=== PATIENT | female | born 1990 | race Caucasian/White ===

== ENCOUNTER 2022-02-25 11:46 | Outpatient (CLI) | payer OTHER, SELFPAY ==
--- NOTE | 2022-02-25 12:15 | CRLHL7_ITS ---
For Patients: As a result of the Cures Act, medical imaging exams and procedure reports are released immediately into your electronic medical record. You may view this report before your referring provider. If you have questions, please contact your health care provider. INDICATION: First trimester scan, establish dates. COMPARISON: None. TECHNIQUE: Real-time mojica-scale imaging of the pelvis was performed. FINDINGS: Sonographic imaging demonstrates a single living intrauterine gestation. The embryo demonstrates a regular cardiac rate measuring 165 beats per minute. The embryo`s crown-rump length measurement of 2.2 cm corresponds to a gestational age of 8 weeks 6 days with a sonographic due date of 10/01/2022. There is a normal-appearing yolk sac. There are no gross abnormalities noted within the embryo at this early state of development. The gestational sac has a normal appearance. There is no evidence of a perigestational hemorrhage. The amount of fluid within the sac appears appropriate for gestational age. The cervix is closed. The myometrium appears normal. The ovaries are of normal size. Corpus luteal cyst right ovary. There are no suspicious fluid collections noted in the cul-de-sac. IMPRESSION: Normal first trimester OB ultrasound exam. Gestational age calculated at 8 weeks 6 days with a sonographic due date of 10/01/2022. Dictated by James Vigil MD @ 02/25/2022 1:46:28 PM (Electronically Signed)
== END 2022-02-25 11:47 | disposition home or self-care (01) ==
PROVIDERS: Visit Provider Physician Assistant
DX: Z34.91 Encounter for supervision of normal pregnancy, unspecified, first trimester (principal); Z3A.08 8 weeks gestation of pregnancy
CPT/HCPCS: 76817; 82565; 82570; 84156; 84450; 84460; 84520; 84550; 86592; 86703; 86762; 86787; 86803; 86850; 86900; 86901; 87086; 87340; 87491; 87591

== ENCOUNTER 2022-03-20 12:31 | Outpatient (CLI) | payer OTHER, SELFPAY ==
[2022-03-20 18:07] LABS: Total Protein Urine 15 mg/dL
[2022-03-20 18:08] LABS: Creatinine Urine 53.3 mg/dL
[2022-03-20 18:16] LABS: Collection Time Urine 1900 Hours
[2022-03-20 18:17] LABS: Total Protein 24 Hour Urine 315 mg/dL; Total Volume 24 Hour Urine 2100 ml; Urine Creatinine mg/24 Hour 0 mg/Day
== END 2022-03-20 12:32 | disposition home or self-care (01) ==
PROVIDERS: Physician Assistant
DX: Z34.91 Encounter for supervision of normal pregnancy, unspecified, first trimester (principal); Z87.59 Personal history of other complications of pregnancy, childbirth and the puerperium; Z3A.12 12 weeks gestation of pregnancy
CPT/HCPCS: 82570; 84156

== ENCOUNTER 2022-03-24 09:59 | Outpatient (CLI) | payer OTHER, SELFPAY ==
[2022-03-24 14:58] LABS: Albumin* 3.4 g/dL (3.3-5.0)
[2022-03-24 15:01] LABS: Alanine Aminotransferase* 28 U/L (4-35); Alkaline Phosphatase* 57 U/L (40-150); Aspartate Amino Transferase* 36 U/L (12-35); Bilirubin Direct* 0.3 mg/dL (0.0-0.5); Bilirubin Total* 0.4 mg/dL (0.1-1.5); Total Protein* 5.7 g/dL (6.0-8.3)
== END 2022-03-24 10:00 | disposition home or self-care (01) ==
LOC: LKVREF 10:01
PROVIDERS: Visit Provider Physician Assistant
DX: Z34.90 Encounter for supervision of normal pregnancy, unspecified, unspecified trimester (principal)
CPT/HCPCS: 80076

== ENCOUNTER 2022-05-19 09:40 | Outpatient (CLI) | payer OTHER, SELFPAY ==
--- NOTE | 2022-05-19 09:45 | CRLHL7_ITS ---
For Patients: As a result of the Century Cures Act, medical imaging exams and procedure reports are released immediately into your electronic medical record. You may view this report before your referring provider. If you have questions, please contact your health care provider. INDICATION: Evaluate anatomy. COMPARISON: 02/25/22 TECHNIQUE: Real time mojica scale imaging of the fetus was performed as well as color Doppler analysis of the umbilical vessels. FINDINGS: Sonographic imaging demonstrates a single living intrauterine gestation. Fetus demonstrates a regular cardiac rate of 136 beats per minute. Fetus has a vertex position. The placenta lies posteriorly without evidence of placenta previa. The edge of the placenta is located 4.3 cm from the internal cervical os. Amniotic fluid volume appears normal. Single deepest vertical pocket: 2.9 cm. The cervix is closed and measures 3.5 cm in length. The composite ultrasound gestational age is calculated at 20 weeks 4 days with an estimated sonographic due date of 10/02/2022. The estimated weight is 370 grams which lies at the 43rd %. The following biometric measurements were obtained: Biparietal diameter: 4.8 cm/20 weeks 3 days 37th% Head circumference: 17.8 cm/20 weeks 2 days 21st% Abdominal circumference: 15.6 cm/20 weeks 6 days 46th% Femur length: 3.4 cm/20 weeks 5 days 40th% The HC/AC ratio measures: 1.14 range (1.07-1.25) On anatomic survey, there is a normal appearance of the cerebral ventricles, cavum septi pellucidi, cisterna magna and cerebellum. The nose, lips, and facial profile appear normal. The cervical, thoracic and lumbar spine are well visualized and appear normal. There is a normal four-chamber heart view and the left and right ventricular outflow tracts appear normal. The diaphragm and stomach appear normal. The kidneys and bladder also appear normal. There is a normal three-vessel cord and there is an eccentric cord insertion site. The four extremities appear normal. IMPRESSION: Normal OB ultrasound exam with concordance of clinical and sonographic dating. No intrinsic abnormalities noted on anatomic survey. Dictated by James Vigil MD @ 05/19/2022 11:40:40 AM (Electronically Signed)
== END 2022-05-19 09:41 | disposition home or self-care (01) ==
LOC: US 09:40
PROVIDERS: Visit Provider Physician Assistant
DX: Z34.92 Encounter for supervision of normal pregnancy, unspecified, second trimester (principal); Z3A.20 20 weeks gestation of pregnancy
CPT/HCPCS: 76805

== ENCOUNTER 2022-09-05 15:26 | Outpatient (CLI) | payer OTHER, SELFPAY ==
[2022-09-06 17:15] LABS: Strep B DNA Probe NEGATIVE (Negative)
[2022-09-06 18:06] LABS: Strep B Pen/Amox Allergy No
== END 2022-09-05 15:27 | disposition home or self-care (01) ==
LOC: NFLDREF 15:26
PROVIDERS: Visit Provider Obstetrics & Gynecology
DX: Z34.93 Encounter for supervision of normal pregnancy, unspecified, third trimester (principal); Z3A.36 36 weeks gestation of pregnancy
CPT/HCPCS: 87081; 87653

== ENCOUNTER 2022-09-30 15:09 | Inpatient (IN) | payer OTHER, SELFPAY ==
[2022-09-30] VITALS (31 sets, daily range): BP systolic 101–149; BP diastolic 63–87; PULSE 71–118; RESP 18; TEMP 36.6–36.8; O2SAT 93–100; BMI 25.2
[2022-09-30] MEDS: LACTATED RINGERS 1000 ML 1,000 ML 1200 ML IV (15:33)
[2022-09-30] MEDS: PHENYLEPHRINE 100 MCG/ML SYRINGE IVP (15:50)
[2022-09-30] MEDS: ROPIVACAINE 0.2% 100 ml 100 ML 12 MG EPIDURAL (15:59)
[2022-09-30 16:10] LABS: Amnisure Rom* Negative
--- NOTE | 2022-09-30 16:10 | P.ANBPRC_ITS ---
[facility] Medical History (Updated 09/29/22 @ 12:26 by Sarahy Mondragon MD) care ?Z34.90 - Encounter for supervision of normal , unspecified, unspecified trimester (ICD-10) History of pre-eclampsia ?Z87.59 - Personal history of other complications of , childbirth and the puerperium (ICD-10) Surgical History (Updated 02/25/22 @ 11:30 by Joana Benitez PA-C) History of laparoscopy ?Z98.890 - Other specified postprocedural states (ICD-10) History of hysteroscopy ?Z98.890 - Other specified postprocedural states (ICD-10) History of appendectomy ?Z90.49 - Acquired absence of other specified parts of digestive tract (ICD- 10) History of vacuum extraction assisted delivery ?Z87.59 - Personal history of other complications of , childbirth and the puerperium (ICD-10) Social History (Updated 02/25/22 @ 13:23 by Joana Benitez PA-C) Narrative: funeral service manager. . Nonsmoker. Smoking Status: Never smoker Little interest or pleasure in doing things: not at all Feeling down, depressed, or hopeless: not at all Meds Home Medications and Allergies Home Medications Medication Instructions Recorded Confirmed Type docosahexaenoic acid 200 mg mg PO 09/22/22 09/29/22 History capsule ( DHA) Allergies Allergy/AdvReac Type Severity Reaction Status Date / Time No Known Drug Allergies Allergy Verified 09/29/22 12:26 Results Vital Signs Vital Signs: Last Vital Signs Temp 97.9 F 09/30/22 16:04 Pulse 91 09/30/22 16:06 Resp 18 09/30/22 16:04 BP 130/76 09/30/22 16:06 Pulse Ox 98 09/30/22 15:52 Weight: 62.709 kg Height: 157.48 cm Anesthesia Procedures Epidural Insertion Patient Location: OB Start Time: 15:25 Stop Time: 14:15 Start Date: 09/30/22 Stop Date: 09/30/22 Reason for Block: procedure for pain Patient Position: sitting Performed By: Maggie Khan Preanesthetic Checklist: IV checked, risks and benefits discussed, monitors and equipment checked, timeout performed and anesthesia consent Prep: chlorhexidine gluconate Monitoring: blood pressure monitoring, continuous pulse oximetry and heart rate Approach: midline Vertebral Space: lumbar (1-5) Epidural Technique: SWETHA saline Needle Type: Tuohy needle Injection Technique: continuous catheter Needle gauge: 17 Needle Length (cm): 10 cm Needle Insertion Depth (cm): 6 Catheter Gauge: 19 Catheter Type: multi-orifice Catheter at skin depth (cm): 12 Test Dose Result: negative and lidocaine 1.5% with epinephrine 1 to 200,000
[2022-09-30] MEDS: OXYTOCIN 30 unit/500 ML in NS 30 UNIT/500 ML BAG 300 UNIT IVPB (17:23)
--- NOTE | 2022-09-30 17:49 | W.PM.LDBA ---
Subjective History of Present Illness Time Seen by Provider: 16:00 Date Seen: 09/30/22 Narrative: Patient is being admitted to Labor and Delivery for active labor. Frank every 3-5 minutes. She is a 31 year old at 39.6 weeks gestation. Her full history and physical was dictated by Dr. Mondragon on 09/12/2022. Please see this for details. Patient denies vaginal bleeding or leakage of fluid. She also denies MERCER, n/v, RUQ pain, or visual abnormalities Endorses normal movement. OB - Problem Based A/P Additional Plan (1) Spontaneous onset of labor: Status: Acute Plan - Admitted for spontaneous labor - Pain management plan: epidural Delivery/Labor/Induction Plan Plan: expectant management OB Exam Physical Exam Vital signs: Temp Pulse Resp BP Pulse Ox 97.9 F 110 H 18 111/71 99 09/30/22 17:37 09/30/22 17:37 09/30/22 17:37 09/30/22 17:37 09/30/22 17:01 Narrative: Physical exam: General: In labor pain requesting epidural Psych: Alert and oriented x3, full affect HEENT: Normocephalic, atraumatic Lungs: Labored breathing through contractions Neuro: No focal deficit. Mentating appropriately Pelvic exam: 5/90/0 with bulging bag per RN
--- NOTE | 2022-09-30 18:01 | W.PM.VAGDEL1 ---
Procedure Delivery date: 09/30/22 Procedure Done: Global Procedure Details: Latisha is a 31 year-old admitted on 09/30/2022 at 39 and 6/7 weeks gestation for spontaneous onset of labor. Cervical exam on admission was 6 cm/90 % effaced/0 station with membranes intact in vertex presentation. Contractions were every 2-3 minutes. heart rate demonstrated baseline 110 bpm with moderate variability, + accelerations, negative decelerations; a category I tracing. GBS negative. SROM occurred at 1725 on 09/30/2022 with clear fluid. Labor Analgesia: Epidural Pitocin: No Labor onset: 09/30/22 at 1523 Complete: 09/30/22 at 1627 Pushin09/30/22 at 1627 heart tones during second stage were Cat I for the majority of the second stage with a couple of variable decelerations during . At 1723 a viable female infant (Megha) delivered in vertex away presentation over intact perineum via spontaneous vaginal delivery. Infant was placed on maternal abdomen. Cord was clamped and cut after a 30-60 second delay. Nose and mouth were bulb suctioned. weight: Pending. 8 at 1 minute and 9 at 5 minutes. Shoulder dystocia: No. Nuchal cord: No. Placenta delivered spontaneously and complete at 1725 with a 3 vessel cord. Complications: None. Mother and were stable after delivery. Laceration(s): None Estimated blood loss: 50 mL. Sponge and needles counts are correct. Mother and were stable at the time of this note. Latisha is planning on .
[2022-09-30] MEDS: ACETAMINOPHEN 500 MG TABLET 1000 MG PO (18:20)
[2022-09-30] MEDS: IBUPROFEN 600 MG TABLET PO (20:34)
[2022-09-30] MEDS: diphenhydrAMINE 25 MG CAPSULE PO (21:30)
[2022-10-01] MEDS: ACETAMINOPHEN 500 MG TABLET 1000 MG PO ×3 (00:14→19:25)
[2022-10-01 00:17] VITALS: BP 135/87; PULSE 67; RESP 16; TEMP 36.7; O2SAT 98
[2022-10-01] MEDS: IBUPROFEN 600 MG TABLET PO ×2 (04:46→11:34)
[2022-10-01 04:47] VITALS: BP 124/71; PULSE 71; RESP 16; TEMP 36.6
[2022-10-01] MEDS: diphenhydrAMINE 25 MG CAPSULE PO ×2 (04:58→18:14)
[2022-10-01 06:32] LABS: Hemoglobin* 10.8 gm/dL (12.0-16.0)
[2022-10-01 07:56] VITALS: BP 117/77; PULSE 73; RESP 16; TEMP 36.6
[2022-10-01] MEDS: DOCUSATE SODIUM 100 MG CAPSULE PO (07:57)
[2022-10-01] MEDS: HYDROCORTISONE 1 % CREAM 1 APPLIC TOPICAL ×3 (08:06→21:22)
--- NOTE | 2022-10-01 08:39 | PM.OBPNVD1 ---
OB - PN:Subj Subjective Time Seen by Provider: 08:39 Date Seen: 10/01/22 Patient comments OB post-: other (Complains of extremely itchy full body rash. Has been taking amoxicillin for sinus infection for 5 days. Had a previous rash from amoxicillin when she was in high school, but has used it since without problems. Denies shortness of breath, facial or tongue swelling.) infant status: Narrative: Reports normal lochia, passed a couple small clots. OB - PN: Obj Exam Physical Exam: Vital signs: Temp Pulse Resp BP Pulse Ox O2 Del Method 97.9 F 73 16 117/77 98 Room Air 10/01/22 07:56 10/01/22 07:56 10/01/22 07:56 10/01/22 07:56 10/01/22 00:17 10/01/22 07:56 Constitutional: Constitutional: no acute distress Routine Abdominal Exam: Abdominal: Present soft; Absent tenderness Fundus: Present firm Routine Extremities Exam: Extremities: Present normal inspection and pedal edema; Absent calf tenderness Routine Skin Exam: Skin: Present rash (maculopapular erythematous pruritic rash on trunk and extremities and neck) Routine Neurological Exam: Neurological: Present alert and oriented X3 Routine Psychiatric Exam: Psychiatric: Present normal affect OB - PN: Obj Data Labs Labs: Laboratory Results - last 24 hr 09/30/22 10/01/22 15:49 06:05 Hgb 10.8 L Membrane Rupture Negative OB - PN: A/P Delivery Assessment and Plan (1) Status post normal vaginal delivery: Status: Acute (2) Anemia due to blood loss, acute: Status: Acute Assessment and Plan: asymptomatic (3) Amoxicillin-induced allergic rash: Status: Acute Plan Famotidine and oral steroid taper will be ordered for rash, as she has not had great response to antihistamine and topical hydrocortisone. Relative safety of medications during reviewed. Plan day: 1 Plan: routine care
[2022-10-01] MEDS: predniSONE 20 MG TABLET 30 MG PO (09:50)
[2022-10-01] MEDS: FAMOTIDINE 20 MG TABLET PO ×2 (09:50→21:22)
[2022-10-01 11:08] VITALS: BP 121/80; PULSE 73; RESP 16; TEMP 36.4
[2022-10-01 15:03] VITALS: BP 127/76; PULSE 60; RESP 16; TEMP 36.8
[2022-10-02] MEDS: IBUPROFEN 600 MG TABLET PO ×2 (00:04→06:52)
[2022-10-02] MEDS: diphenhydrAMINE 25 MG CAPSULE PO (00:04)
[2022-10-02 00:46] VITALS: BP 117/77; PULSE 55; RESP 16; TEMP 36.7; O2SAT 96
[2022-10-02] MEDS: ACETAMINOPHEN 500 MG TABLET 1000 MG PO ×2 (02:42→08:42)
--- NOTE | 2022-10-02 07:42 | PM.OBDSVD1 ---
DS: Providers Provider Date Seen: 10/02/22 Date of admission: 09/30/22 15:09 Primary care physician: Not a Local Provider Admitting Clinician: Patricia Anderson MD Attending Physician on discharge: Cesilia De Jesus CNM DS: Diagnosis Discharge Diagnosis (1) Amoxicillin-induced allergic rash: Status: Acute (2) Lactating mother: Status: Acute (3) care and examination immediately after delivery: Status: Acute Exam Narrative: Exam Narrative: GENERAL APPEARANCE:? normal affect, alert, no distress MOOD:? appropriate CHEST:? clear to auscultation HEART:? regular rate and rhythm ABDOMEN:? soft, non-tender the uterine fundus is at Umbilicus, Midline and is appropriate for the stage of recovery. PERINEUM:? mild edema of the perineum, intact perineum. EXTREMITIES:? normal and no edema Const: Vital Signs, click to edit/add: Vital Signs - 24 hr 10/01/22 07:56 10/01/22 11:08 10/01/22 15:03 Temperature 97.9 F 97.6 F 98.2 F Pulse Rate [Pulse Oximeter] 73 73 60 Respiratory Rate 16 16 16 Blood Pressure [Ri ght Arm] 117/77 121/80 127/76 Pulse Oximetry Oxygen Delivery Me thod Room Air Room Air Room Air 10/02/22 00:46 Temperature 98.0 F Pulse Rate [Pulse Oximeter] 55 L Respiratory Rate 16 Blood Pressure [Ri ght Arm] 117/77 Pulse Oximetry 96 Oxygen Delivery Me thod Documenting provider has reviewed patient's vital signs: yes OB - DS: Summary Hospital Course Hospital Course: Laurel Good is a 31 y.o. who was admitted to L & D for spontaneous onset of labor. ?She had an NVD, it was uncomplicated. Her was complicated by an amoxicillin reaction. The patient feels well. ?The pain is well controlled with current medications. ?She has no new complaints. ?She is breast feeding and reports things are a little difficult, having some latching issues. The nurses have been helping, there is no this week. She will plan to schedule one next week. the patient has done well.? Vitals have been stable.? She has remained afebrile.? Has a good appetite, is tolerating a general diet. ?She is voiding without difficulty.? She is passing gas and has not had a bowel movement.? She is ambulating and denies any dizziness.? Has Small amount of rubra lochia. Problems: none plan: Discharge home with baby. Follow up in 2 weeks and 6 weeks. , may see if needed Hgb 10.8. Will continue iron supplement at home. Peripartum Data Infant delivery method: Vaginal Laceration description: None complications: other (amoxicillin reaction) [place] Gender: Female Discharge Plan: Home Status at Discharge Functional status at discharge: independent ambulation Overall status at discharge: patient is progressing back to baseline Time Spent with Patient Time attestation: Total time spent providing and/or coordinating discharge services: Discharge Plan Discharge Disposition: Home, Self-Care Date of Admission: 09/30/22 15:09 Attending Provider on Discharge: Cesilia De Jesus Primary Care Provider: Provider,Not a Local Condition: Stable Anticipated Discharge Date/Time: 10/02/22 12:00 Discharge Medications: New docusate sodium 100 mg Capsule 100 mg PO DAILY Qty: 90 0RF ibuprofen 600 mg Tablet 600 mg PO Q6H PRNQty: 60 0RF prednisone 10 mg tablet See Rx Instructions .ROUTE .COMPLEX Qty: 9 0RF Rx Instructions: For days 1-3, take 20 mg (2 tabs) once daily by mouth (3 days). On days 4-6, take 10 mg (1 tab) once daily by mouth (3 days). acetaminophen 500 mg Tablet 1,000 mg PO Q6H PRNQty: 0 0RF Continued DHA 200 mg capsule 200 mg PO DAILY ferrous sulfate 325 mg (65 mg iron) tablet 325 mg PO Q OTHER DAY Qty: 90 2RF Discharge Orders: Discharge Order (Routine); Ordered 10/02/22 Ordered By: Cesilia De Jesus Patient Education: OB Over the Counter Medication Information, OB Vaginal/Breast Feeding Additional Instructions: Discharge instructions were reviewed with the patient including signs and symptoms of infection and home going medications Nothing vaginally for 6 weeks: no tampons or intercourse Off Work or School for 6 weeks 2-week visit: discuss infant feeding concerns, review control options and screen for anxiety/depression. 6-week visit for an annual exam. consultation services are available to all mothers and babies for the first year after delivery.? To make an appointment, please call [phone]. Activity Level: Activity as Tolerated Discharge Diet: Regular Follow Up Appointments: [facility] [Provider Group] Forms: [employer] Info Instructions
[2022-10-02] MEDS: DOCUSATE SODIUM 100 MG CAPSULE PO (08:42)
[2022-10-02] MEDS: predniSONE 10 MG TABLET 25 MG PO (08:43)
[2022-10-02 08:59] VITALS: BP 125/78; PULSE 81; RESP 16; TEMP 36.8; O2SAT 98
== END 2022-10-02 10:45 | disposition home or self-care (01) | DRG 807 ==
LOC: OB 15:12
PROVIDERS: Admitting Provider Obstetrics & Gynecology; Visit Provider Obstetrics & Gynecology
DX: O99.02 Anemia complicating childbirth (principal); Z37.0 Single live birth; D64.9 Anemia, unspecified; O9A.23 Injury, poisoning and certain other consequences of external causes complicating the puerperium; L27.0 Generalized skin eruption due to drugs and medicaments taken internally; T36.0X5A Adverse effect of penicillins, initial encounter; Y92.230 Patient room in hospital as the place of occurrence of the external cause; Z3A.39 39 weeks gestation of pregnancy
CPT/HCPCS: 01967; 36415; 84112; 85018; 85025; 86850; 86900; 86901; A9270; J2371; J2795; J7120; J7512; S0020

== ENCOUNTER 2023-07-09 12:15 | Outpatient (CLI) | payer OTHER, SELFPAY ==
--- NOTE | 2023-07-09 12:30 | US_ITS ---
Patient: GAVIN BAKER Facility:?[facility] Patient ID:?[id number] Site Patient ID:?[id number]. Site :?1990 Study:?US-OB Pelvis dating-07/09/2023 1:03:37 PM Ordering Physician:Mani June Final Report: INDICATION: First trimester scan, establish dates. TECHNIQUE: Real-time mojica-scale imaging of the pelvis was performed. FINDINGS: Sonographic imaging demonstrates a single living intrauterine gestation. The embryo demonstrates a regular cardiac rate measuring 119 beats per minute. The embryo`s crown-rump length measurement of 0.7 cm corresponds to a gestational age of 6 weeks 4 days with a sonographic due date of 02/28/2024 . There is a normal-appearing yolk sac. Small to moderate subchorionic hemorrhage measuring 3.6 x 1.2 x 0.7 centimeters. IMPRESSION: Early intrauterine gestation at 6 weeks 4 days with KAYLEE of 02/28/2024. Small to moderate subchorionic hemorrhage measuring 3.6 x 1.2 x 0.7 centimeters. Dictated by Kaya Henry MD @ 07/10/2023 9:49:37 AM Signed by:?Kaya Henry MD @07/10/2023 9:49:37 AM (Electronic Signature)
== END 2023-07-09 12:16 | disposition home or self-care (01) ==
LOC: US 12:16
PROVIDERS: Visit Provider Physician Assistant
DX: Z34.91 Encounter for supervision of normal pregnancy, unspecified, first trimester (principal); O20.9 Hemorrhage in early pregnancy, unspecified; Z3A.01 Less than 8 weeks gestation of pregnancy
CPT/HCPCS: 76817

== ENCOUNTER 2023-07-21 13:49 | Outpatient (CLI) | payer OTHER, SELFPAY ==
--- NOTE | 2023-07-21 14:00 | US_ITS ---
Patient: GAVIN BAKER Facility:?[facility] Patient ID:?[id number] Site Patient ID:?[id number]. Site :?1990 Study:?US-OB Pelvis viability-07/21/2023 2:36:09 PM Ordering Physician:Marilu Miles Final Report: INDICATION: Abnormal vaginal bleeding in early . TECHNIQUE: Transabdominal and transvaginal limited obstetric ultrasound examination of the pelvis was performed. Grayscale and color Doppler images were obtained. COMPARISON: Pelvic ultrasound 07/09/2023. FINDINGS: Uterus: Normal in echotexture. No suspicious masses. Endometrium: No significant endometrial free fluid. Intrauterine gestation: Yes. Mean sac diameter of 1.1 cm. cardiac activity: heart tones are no longer observed. [place]-rump length: 1.5 cm. Estimated gestational age of 7 weeks and 6 days. Yolk sac: Normal. Perigestational hemorrhage: No. Right Ovary: Not visualized. Left ovary: Measures 4.7 x 2.5 x 2.9 cm. Corpus luteal cyst. Normal arterial and venous flow on color Doppler imaging. Cul-de-sac: No free fluid. IMPRESSION: Cessation of previously documented embryonic cardiac activity is diagnostic of failure. Dictated by Jhona Anderson MD @ 07/21/2023 3:08:22 PM Signed by:?Jhoan Anderson MD @07/21/2023 3:08:22 PM (Electronic Signature)
== END 2023-07-21 13:50 | disposition home or self-care (01) ==
LOC: US 13:50
PROVIDERS: Visit Provider Advanced Practice Midwife
DX: O20.9 Hemorrhage in early pregnancy, unspecified (principal); O36.8310 Maternal care for abnormalities of the fetal heart rate or rhythm, first trimester, not applicable or unspecified; Z3A.01 Less than 8 weeks gestation of pregnancy
CPT/HCPCS: 76817

== ENCOUNTER 2024-01-05 07:06 | Outpatient (CLI) | payer OTHER, SELFPAY ==
--- NOTE | 2024-01-05 07:15 | CRLHL7_ITS ---
For Patients: As a result of the Cures Act, medical imaging exams and procedure reports are released immediately into your electronic medical record. You may view this report before your referring provider. If you have questions, please contact your health care provider. INDICATION: First trimester scan, establish dates. COMPARISON: None. TECHNIQUE: Real-time mojica-scale imaging of the pelvis was performed. FINDINGS: Sonographic imaging demonstrates a single living intrauterine gestation. The embryo demonstrates a regular cardiac rate measuring 169 beats per minute. The embryo`s crown-rump length measurement of 2.6 cm corresponds to a gestational age of 9 weeks 2 days with a sonographic due date of 08/07/2024. There is a normal-appearing yolk sac. There are no gross abnormalities noted within the embryo at this early state of development. The gestational sac has a normal appearance. There is a 2.3 x 0.7 x 0.9 cm perigestational hemorrhage. The amount of fluid within the sac appears appropriate for gestational age. The cervix is closed. The myometrium appears normal. Normal right ovary. Left ovary not visualized. There are no suspicious fluid collections noted in the cul-de-sac. IMPRESSION: Single living intrauterine measuring 9 weeks 2 days with sonographic due date of 08/07/2024. Subchorionic hemorrhage measures 2.3 x 0.7 x 0.9 cm. Dictated by James Vigil MD @ 01/05/2024 10:27:09 AM (Electronically Signed)
== END 2024-01-05 07:07 | disposition home or self-care (01) ==
PROVIDERS: Visit Provider Physician Assistant
DX: Z34.91 Encounter for supervision of normal pregnancy, unspecified, first trimester (principal); O20.9 Hemorrhage in early pregnancy, unspecified; Z3A.09 9 weeks gestation of pregnancy
CPT/HCPCS: 76817

== ENCOUNTER 2024-01-05 08:03 | Outpatient (CLI) | payer OTHER, SELFPAY | END 2024-01-05 08:04 | disposition home or self-care (01) | PROVIDERS: Visit Provider Physician Assistant | DX: Z34.91 Encounter for supervision of normal pregnancy, unspecified, first trimester (principal); Z3A.09 9 weeks gestation of pregnancy | CPT/HCPCS: 82565; 82570; 84156; 84450; 84460; 84520; 86592; 86703; 86704; 86706; 86762; 86787; 86803; 86850; 86900; 86901; 87086; 87340 ==

== ENCOUNTER 2024-03-10 10:07 | Outpatient (CLI) | payer OTHER, SELFPAY ==
--- NOTE | 2024-03-10 10:15 | CRLHL7_ITS ---
For Patients: As a result of the Century Cures Act, medical imaging exams and procedure reports are released immediately into your electronic medical record. You may view this report before your referring provider. If you have questions, please contact your health care provider. INDICATION: Evaluate anatomy. COMPARISON: 01/05/2024 TECHNIQUE: Real time mojica scale imaging of the fetus was performed as well as color Doppler analysis of the umbilical vessels. FINDINGS: Sonographic imaging demonstrates a single living intrauterine gestation. Fetus demonstrates a regular cardiac rate of 135 beats per minute. Fetus has a vertex position. The placenta lies anteriorly without evidence of placenta previa. Placental edge 5.2 cm from the internal cervical os. Amniotic fluid volume appears normal. Single deepest vertical pocket: 4.8 cm. The cervix is closed and measures 3.5 cm in length. The composite ultrasound gestational age is calculated at 19 weeks 2 days with an estimated sonographic due date of 08/02/2024. The estimated weight is 285 grams which lies at the 86th %. The following biometric measurements were obtained: Biparietal diameter: 4.3 cm/19 weeks 1 day 74th% Head circumference: 16.0 cm/18 weeks 6 days 56th% Abdominal circumference: 14.6 cm/19 weeks 6 days 86th% Femur length: 2.8 cm/18 weeks 5 days 49th% The HC/AC ratio measures: 1.09 range (1.09-1.26) On anatomic survey, there is a normal appearance of the cerebral ventricles, cavum septi pellucidi, cisterna magna and cerebellum. Nose and lips are incompletely cleared. Normal profile the cervical, thoracic and lumbar spine are well visualized and appear normal. There is a normal four-chamber heart view and the left and right ventricular outflow tracts appear normal. The diaphragm and stomach appear normal. The kidneys and bladder also appear normal. There is a normal three-vessel cord and cord insertion site. The four extremities appear normal. IMPRESSION: Concordance of clinical and sonographic dating. Cannot clear the nose and lips due to position. Short-term follow-up recommended. Remainder of the anatomic survey is normal. Dictated by James Vigil MD @ 03/10/2024 11:57:42 AM (Electronically Signed)
== END 2024-03-10 10:08 | disposition home or self-care (01) ==
PROVIDERS: Visit Provider Advanced Practice Midwife
DX: Z34.92 Encounter for supervision of normal pregnancy, unspecified, second trimester (principal); O35.AXX0 Maternal care for other (suspected) fetal abnormality and damage, fetal facial anomalies, not applicable or unspecified; Z3A.19 19 weeks gestation of pregnancy
CPT/HCPCS: 76805

== ENCOUNTER 2024-06-15 10:23 | Outpatient (CLI) | payer OTHER, SELFPAY | END 2024-06-15 10:24 | disposition home or self-care (01) | LOC: NFLDREF 06-20 03:55 | PROVIDERS: Visit Provider Midwife | DX: Z34.93 Encounter for supervision of normal pregnancy, unspecified, third trimester (principal); Z3A.32 32 weeks gestation of pregnancy | CPT/HCPCS: 86592 ==

== ENCOUNTER 2024-07-20 13:09 | Outpatient (CLI) | payer OTHER, SELFPAY | END 2024-07-20 13:10 | disposition home or self-care (01) | LOC: NFLDREF 07-27 02:36 | PROVIDERS: Visit Provider Midwife | DX: Z34.83 Encounter for supervision of other normal pregnancy, third trimester (principal) | CPT/HCPCS: 87081; 87653 ==

== ENCOUNTER 2024-08-12 07:24 | Inpatient (IN) | payer OTHER, SELFPAY ==
[2024-08-12] VITALS (24 sets, daily range): BP systolic 117–151; BP diastolic 65–88; PULSE 67–88; RESP 14–18; TEMP 36.6–37; O2SAT 96–98; BMI 24.8
--- NOTE | 2024-08-12 07:20 | W.PM.LDBA ---
Subjective History of Present Illness Date Seen: 08/12/24 Narrative: Patient is being admitted to Labor and Delivery for active labor. She is a 33 year old at 40 5/7 weeks gestation. Her full history and physical was dictated by me on 07/20/2024. Please see this for details. She is planning to naturally and Bharat is here supporting her. No LOF or vaginal bleeding. She reports good movement. Contractions began at 0430 and have increased since pumping at 0630. She is feeling them mostly in her back. Specific Issues/Plans Partner: Bharat HPI completed 07/20/2024 by Lidia SAN Traveling out of state March - May 41 week IOL scheduled for 08/14 at 730 am # history of pre E with 1st Aspirin 81 mg starting at 12 weeks Baseline pre E labs: pr/cr ratio: 0.53, o/w normal # history of IVF with 1st only # history of vacuum assisted vaginal delivery with 1st , pushed for 4 hours #varicella non-immune Vaccinate #Inadequate view of nose and lip Follow-up US when patient returns from travels US f/u: declined by patient 07/20/24 #Anemia Hgb at 32 weeks:10.2mg/dL Start oral iron supplements recommended 06/15/24 Vaccinations: COVID: declines Flu: declines Tdap: 06/15/2024 RSV: N/A 32 week mental health: 06/15/24 Last pap: 2020, declined Pap until Consider pelvic floor PT for PP Comments: ? OB - Problem Based A/P Additional Plan (1) Pain during labor: Status: Acute (2) Supervision of other normal : Status: Acute Plan ASSESSMENT:?? 33 yo at 40w5d gestation?? complicated by:??anemia, inadequate view of nose and lip with follow up declined by patient. Labor type:Spontaneous, Active labor?? Category 1 FHR pattern.??? Labor complicated by: none?? GBS negative? ?? PLAN:?? 1. Routine intrapartum cares as ordered. Continue with expectant management. Enc inversion and side-lying releases and to consider ROM if augmentation is needed? 2. Monitoring per policy, intermittent?? 3. Planning unmedicated . Candidate for analgesia of choice.?She does not want to be offered any pain meds, but is aware of options available. 4. Patient encouraged to reposition and ambulate to promote physiologic labor and .?? 5. Anticipate OB Exam Physical Exam Vital signs: Temp Pulse Resp BP Pulse Ox 98.5 F 78 16 117/71 98 08/12/24 05:00 08/12/24 05:00 08/12/24 05:00 08/12/24 05:00 08/12/24 02:28 Narrative: Vitals Reviewed Constitutional:? Alert and oriented x3 HEENT:? Normocephalic, atraumatic Neck:? Supple Lungs:? Clear to auscultation bilaterally Heart:? Regular rate and rhythm, no murmur, rub or gallop Abdomen:? Soft, nontender, and gravid. Vertex by Jaden's, confirmed with cervical exam. Extremities:? No edema or erythema Cervix: 5 cm/80%/-2 station/vertex per nursing assessment NST: 120 bpm/moderate variability/accelerations present/decelerations absent, though cannot be completely ruled out due to broken tracing and suspected maternal coincidence/contractions every 3-5min--feels ROP
[2024-08-12] MEDS: OXYTOCIN 10 UNIT/ML INJ IM (10:36)
[2024-08-12] MEDS: METHYLERGONOVINE MALEATE 0.2 MG/ML INJ IM (10:50)
[2024-08-12] MEDS: OXYTOCIN 30 unit/500 ML in NS 30 UNIT/500 ML BAG 300 UNIT IVPB (10:53)
[2024-08-12] MEDS: ACETAMINOPHEN 500 MG TABLET 1000 MG PO (10:58)
--- NOTE | 2024-08-12 11:00 | W.PM.OBVAGDE ---
OB Procedure Vag Delivery Mother Details Mother Details: The patient is a 33 year-old, 5, now Para 3023, admitted on 08/12/24 at 40 5/7 weeks gestation. Admission Date: 08/12/24 Additional Details Amniotic Membrane Status: SROM Amniotic Membrane Rupture Date: 08/12/24 Amniotic Membrane Rupture Time: 10:15 Amniotic Membrane Fluid Description: Clear Analgesia/Anesthesia Type: None Waterbirth: No Pitcoin: Yes Intrapartal Events: None Labor Onset: 06:30 Complete: 10:02 Pushin:00 (consistent, stronger pushing) Heart: heart tones during second stage were checked intermittently and category I. Delivery Details Delivery Date: 08/12/24 Delivery Time: 10:31 Route of delivery: Gender: Male Infant Viability: Alive; Heart Rate Present Delivery Details: Patient was admitted for active labor and progressed normally. She wanted to naturally and was able to do so very well. SROM noted at 1015 with clear fluid. She was intermittently spontaneously doing small pushes to cope when she was about 9 cm. Patient was complete at 1002 and pushing at 1000 with stronger, longer pushing efforts. of a viable male at 1031 in semifowlers. Vertex delivered OA. One tight nuchal cord that was carefully reduced without complication. No shoulder dystocia. Body delivered easily and without incident. Infant passed to mothers abdomen with excellent tone and cried on arrival to her abdomen. Cord was clamped and cut when placenta showed signs of separation.. APGARS were 8 at one minute and 8 at five minutes respectively. Mouth was bulb suctioned by nursing. Intact placenta with a 3 vessel cord delivered spontaneously at 1035. Fundus firm initially. 2nd degree 1 cm lac at midline introitus that was hemostatic and not repaired. Uterine atony noted after inspecting vulva after IM pitocin for active management was given already. Vaginal sweep with approximately 200 in clots removed. Methergine IM given, IV started with IV pitocin. Total EBL 700 cc. QBL could not be calculated due to amniotic fluid on pads. QBL in drape that was placed after baby, but before placenta, was 450cc, with EBL under her 250cc. Mother and baby stable; mother plans to breastfeed. weight pending.? At time of this note signing, pt is stable with normal VS, firm fundus, and moderate rubra. ? 1 Minute Interval Total Score: 8 5 Minute Interval Total Score: 8 Additional Details Shoulder Dystocia: No Placenta Delivery Time: 10:35 Placental Delivery Description: Spontaneous Procedure Done: Global Blood Loss: 700 Laceration: Perineal - 2nd Degree (hemostatic and not repaired) Episiotomy Description: None Blood Loss Measurement Type: EBL Bakri Used: No Sponge/Need Count Correct: Yes (NA) Cord Vessel Description: 3 Vessels, Tight and Reduced Event Summary Status: Mother and infant were stable after delivery. Disposition: floor
[2024-08-12] MEDS: IBUPROFEN 600 MG TABLET PO ×2 (11:18→19:58)
[2024-08-12] MEDS: OXYCODONE 5 MG TABLET PO (14:12)
--- NOTE | 2024-08-12 15:56 | PM.EN ---
Chart Event Note Date Seen: 08/12/24 Chart Event Note: Pt c/o pain with deep inspiration in her back. No cough. VSS. 98% O2 sats. Lung sounds clear. She also noted some nasal congestion and thinks it may be related to that. Will try saline rinses and see if it feels better. She did get a one time dose of oxycodone for afterpains and perineal discomfort and this has improved. the bleeding has also remained minimal and her fundus has been firm. Pt will let us know if any new symptoms develop. She agrees with plan and has no further questions at this time.
[2024-08-13 00:16] VITALS: BP 123/78; PULSE 81; RESP 18; TEMP 36.9; O2SAT 97
[2024-08-13] MEDS: ACETAMINOPHEN 500 MG TABLET 1000 MG PO ×2 (00:22→06:34)
[2024-08-13] MEDS: IBUPROFEN 600 MG TABLET PO ×2 (03:49→12:21)
[2024-08-13 03:50] VITALS: BP 117/75; PULSE 81; RESP 16; TEMP 37.1; O2SAT 97
[2024-08-13 07:03] LABS: Hemoglobin* 10.1 gm/dL (12.0-16.0)
--- NOTE | 2024-08-13 07:51 | PM.OBDSVD1 ---
DS: Providers Provider Date Seen: 08/13/24 Date of admission: 08/12/24 07:24 Primary care physician: Not a Local Provider Admitting Clinician: Aster Cardoso CNM Attending Physician on discharge: Adelfo Jean Baptiste CNM Date of Discharge: 08/13/24 DS: Diagnosis Discharge Diagnosis (1) care and examination of lactating mother: Status: Acute Exam Narrative: Exam Narrative: VSS, afebrile GENERAL APPEARANCE: ?normal affect, alert, no distress MOOD: ?appropriate HEENT: normocephalic, neck supple, full ROM CHEST: ?Symmetrical chest wall movement. ?Normal respiratory effort. ?Clear to auscultation HEART: ?regular rate and rhythm ABDOMEN: ?soft, non-tender. Uterine fundus is firm, at Umbilicus, Midline and is appropriate for the stage of recovery. ?Bowel sounds present. PERINEUM: ?mild edema of the perineum, there is a 2nd degree laceration that is healing well. EXTREMITIES: ?normal and no edema Const: Vital Signs, click to edit/add: Vital Signs - 24 hr 08/12/24 08:01 08/12/24 10:39 08/12/24 10:39 Temperature 97.8 F Pulse Rate 79 88 Pulse Rate [Pulse Oximeter] Respiratory Rate 18 Blood Pressure 127/83 128/65 Blood Pressure [Le ft Arm] Pulse Oximetry Oxygen Delivery [facility] 08/12/24 10:56 08/12/24 10:56 08/12/24 11:10 Temperature Pulse Rate 76 Pulse Rate [Pulse Oximeter] Respiratory Rate 18 18 Blood Pressure 127/75 Blood Pressure [Le ft Arm] Pulse Oximetry Oxygen Delivery [facility] 08/12/24 11:11 08/12/24 11:25 08/12/24 11:26 Temperature 97.9 F Pulse Rate 77 71 Pulse Rate [Pulse Oximeter] Respiratory Rate 18 Blood Pressure 132/76 133/81 Blood Pressure [Le ft Arm] Pulse Oximetry Oxygen Delivery [facility] 08/12/24 11:40 08/12/24 11:41 08/12/24 11:55 Temperature Pulse Rate 68 Pulse Rate [Pulse Oximeter] Respiratory Rate 18 18 Blood Pressure 136/81 Blood Pressure [Le ft Arm] Pulse Oximetry Oxygen Delivery [facility] 08/12/24 11:56 08/12/24 12:10 08/12/24 12:11 Temperature Pulse Rate 72 72 Pulse Rate [Pulse Oximeter] Respiratory Rate 18 Blood Pressure 136/80 132/81 Blood Pressure [Le ft Arm] Pulse Oximetry [facility] 08/12/24 12:25 08/12/24 12:26 08/12/24 12:40 Temperature Pulse Rate 67 Pulse Rate [Pulse Oximeter] Respiratory Rate 18 18 Blood Pressure 138/75 Blood Pressure [Le ft Arm] Pulse Oximetry [facility] 08/12/24 12:41 08/12/24 12:56 08/12/24 12:56 Temperature Pulse Rate 71 83 Pulse Rate [Pulse Oximeter] Respiratory Rate 18 Blood Pressure 146/84 H 151/80 H Blood Pressure [Le ft Arm] Pulse Oximetry [facility] 08/12/24 13:13 08/12/24 14:08 08/12/24 14:11 Temperature Pulse Rate 74 Pulse Rate [Pulse Oximeter] Respiratory Rate 14 Blood Pressure 118/71 Blood Pressure [Le ft Arm] Pulse Oximetry 98 [facility] 08/12/24 17:02 08/12/24 19:59 08/13/24 00:16 Temperature 97.9 F 98.5 F 98.5 F Pulse Rate Pulse Rate [Pulse Oximeter] 74 69 81 Respiratory Rate 16 16 18 Blood Pressure Blood Pressure [Le ft Arm] 122/76 128/88 123/78 Pulse Oximetry 96 97 97 [facility] Room Air Room Air 08/13/24 03:50 Temperature 98.7 F Pulse Rate Pulse Rate [Pulse Oximeter] 81 Respiratory Rate 16 Blood Pressure Blood Pressure [Le ft Arm] 117/75 Pulse Oximetry 97 [facility] Documenting provider has reviewed patient's vital signs: yes OB - DS: Summary Hospital Course Hospital Course: Laurel is a 33 y.o. who was admitted to L & D for labor. ?She had an uncomplicated NVD.?The patient feels well. ?The pain is well controlled with current medications. ?She has no new complaints. ?She is breast feeding and reports things are going well, she is using a SNS at the breast to help with latching. Feels comfortable with using this at home if needed and may decide to supplement with formula until her milk comes in. ? the patient has done well.? Vitals have been stable, she has had one elevated BP since admission.? She has remained afebrile.? Has a good appetite, is tolerating a general diet. ?She is voiding without difficulty.? She is passing gas and has not had a bowel movement.? She is ambulating and denies any dizziness.? Has Small amount of rubra lochia. ?She is planning NFP for prevention. Peripartum Data Infant delivery method: Vaginal Laceration description: Perineal - 2nd Degree complications: none Gender: Male Discharge Plan: Home Status at Discharge Functional status at discharge: independent ambulation Overall status at discharge: patient is progressing back to baseline Time Spent with Patient Time attestation: Total time spent providing and/or coordinating discharge services: Time spent: Less than 30 minutes Discharge Plan Discharge Disposition: Home, Self-Care Date of Admission: 08/12/24 07:24 Attending Provider on Discharge: Adelfo Jean Baptiste Primary Care Provider: Provider,Not a Local Condition: Stable Anticipated Discharge Date/Time: 08/13/24 12:00 Discharge Medications: New docusate sodium 100 mg Capsule 100 mg PO DAILY Qty: 90 1RF ibuprofen 600 mg Tablet 600 mg PO Q6H PRNQty: 60 0RF acetaminophen 500 mg Tablet 1,000 mg PO Q6H PRNQty: 0 0RF Continued DHA 200 mg capsule 200 mg PO DAILY Fergon 225 mg (27 mg iron) tablet 225 mg PO QDAY Unisom (doxylamine) 25 mg tablet 25 mg PO QHS PRN Discharge Orders: Discharge Order (Routine); Ordered 08/13/24 Ordered By: Adelfo Jean Baptiste Patient Education: OB Over the Counter Medication Information, OB Vaginal/Breast Feeding Additional Instructions: Discharge instructions were reviewed with the patient including signs and symptoms of infection and home going medications Nothing vaginally for 6 weeks: no tampons or intercourse Off Work or School for 6 weeks 2-week visit: discuss feeding concerns, review control options and screen for anxiety/depression. 6-week visit for an annual exam. consultation services are available to all mothers and babies for the first year after delivery.? To make an appointment, please call [phone]. Activity Level: Activity as Tolerated Discharge Diet: Regular Follow Up Appointments: [facility] [Provider Group] Forms: MyHealth Info Instructions
[2024-08-13 08:43] VITALS: BP 122/77; PULSE 73; RESP 16; TEMP 36.4; O2SAT 100
[2024-08-13] MEDS: DOCUSATE SODIUM 100 MG CAPSULE PO (08:47)
== END 2024-08-13 12:15 | disposition home or self-care (01) | DRG 807 ==
LOC: OB OUT 07:25 → OB 07:25
PROVIDERS: Admitting Provider Midwife; Visit Provider Midwife
DX: O48.0 Post-term pregnancy (principal); Z37.0 Single live birth; Z28.39 Other underimmunization status; O99.02 Anemia complicating childbirth; D64.9 Anemia, unspecified; O70.1 Second degree perineal laceration during delivery; O62.2 Other uterine inertia; Z3A.40 40 weeks gestation of pregnancy
CPT/HCPCS: 36415; 85018; 86592; 88307; G0463; A9270; J2210; J2590